=== PATIENT | male | born 1995 | race African-American/Black ===

== ENCOUNTER 2024-11-30 22:30 | Emergency (ER) | payer MEDICAID, OTHER ==
[~2024-11-30] VITALS: Ht 160 cm; Wt 73.0 kg
[2024-11-30 22:40] VITALS: O2SAT 98
[2024-12-01] LABS: BASOPHILS % 0.4 % (0.0-2.0); CARBON DIOXIDE 27 mEq/L (21-32); CHLORIDE 105 mEq/L (98-107); EOSINOPHILS % 1.6 % (0.0-5.0); HEMATOCRIT. 44.1 % (42.0-52.0); HEMOGLOBIN. 14.7 g/dL (14.0-18.0); LYMPHOCYTES % 11.7 % (20.0-50.0); MEAN CORPUSCULAR HGB CONC 33.2 g/dL (31.0-37.0); MEAN CORPUSCULAR VOLUME 84.1 fL (80.0-94.0); MEAN PLATELET VOLUME 10.5 fl (7.4-10.4); MONOCYTES % 6.2 % (2.0-8.0); NEUTROPHILS % 80.1 % (40.0-76.0); PLATELET 180 x1000/uL (130-400); RED BLOOD CELL COUNT 5.24 mill/uL (4.7-6.1); RED CELL DISTRIBUTION WIDTH 12.9 % (11.6-14.6); SODIUM 141 mEq/L (136-145); WHITE BLOOD COUNT 8.9 x1000/uL (4.5-11.0)
[2024-12-01 00:01] LABS: CALCIUM 9.9 mg/dL (8.7-10.4)
[2024-12-01 00:05] LABS: CREATININE 0.9 mg/dL (0.6-1.3); GLUCOSE 106 mg/dL (70-105)
[2024-12-01 00:06] LABS: UREA NITROGEN BLOOD 11 mg/dL (9-23)
[2024-12-01 00:07] LABS: ALANINE AMINOTRANSFERASE 38 IU/L (10-49); ALBUMIN 4.8 g/dL (3.2-4.8); ASPARTATE AMINOTRANSFERASE 27 IU/L (<34)
[2024-12-01 00:08] LABS: BILIRUBIN TOTAL 0.5 mg/dL (0.1-1.0); PROTEIN TOTAL 7.8 g/dL (6.0-8.3)
[2024-12-01] MEDS ORDERED: FAMO-135 MT (02:26)
[2024-12-01] MEDS: SODIUM CHLORIDE 0.9% 500 ML IV ONE (02:49)
[2024-12-01] MEDS: ONDANSETRON HCL 4MG/2ML INJ IV STA (02:50)
[2024-12-01] MEDS: KETOROLAC 30MG/ML VIAL IV STA (02:50)
[2024-12-01] MEDS: ONDANSETRON HCL 4MG/2ML INJ IV NR (02:50)
[2024-12-01] MEDS: KETOROLAC 30MG/ML VIAL IV NR (02:51)
[2024-12-01] MEDS: DIPHENHYDRAMINE 50MG/ML VIAL IV ONE (03:12)
[2024-12-01] MEDS ORDERED: DIPH25TA62 MT (04:29)
[2024-12-01 04:41] VITALS: BP 128/80; PULSE 71; RESP 19; TEMP 36.7; O2SAT 99
== END 2024-12-01 04:44 | disposition home or self-care (01) ==
LOC: ER 22:44
DX: R10.84 Generalized abdominal pain (principal); R11.2 Nausea with vomiting, unspecified
CPT/HCPCS: 80053; 83690; 85025; 36415; 99284; 96374; 96375; J7030; J1200; J1885; J2405; Z7610